=== PATIENT | male | born 1975 | race Caucasian/White ===

== ENCOUNTER 2020-02-21 15:37 | Emergency (ER) | payer OTHER, SELFPAY ==
[2020-02-21 15:38] VITALS: BP 138/88; PULSE 112; RESP 18; TEMP 36.6; O2SAT 98; BMI 34.3
--- NOTE | 2020-02-21 16:04 | ED.VIS.BACK ---
History of Present Illness Chief Complaint: Back Informant: Patient Onset: Days - 02-26 Context: Sudden Onset - while trying to lift something heavy at work Injury: Lifting Timing: Continuous Quality: Aching Location: Lumbar - right, Right Leg Current Severity: Moderate Maximum Severity: Severe Worsened by: improves with: Movement, Bending Relieved by: Remaining Still Associated Symptoms: - - Pain radiates into the right lower extremity distal just distal to the right knee. No numbness or tingling. No bowel or bladder dysfunction. Able to walk but with pain. No fevers or abdominal pain. Narrative: Patient states he was lifting something heavy at work does not want to make this a Workmen's Compensation claim. Pain has been mostly in the right lumbosacral area, occasionally radiating down into his right lower extremity but not to the foot. No weakness in the leg. No saddle anesthesia or other numbness. Past Medical History - Allergies and Home Meds Allergies/Adverse Reactions: Allergies No Known Allergies Allergy (Verified 02/21/20 15:37) Doctors: none Lives: Alone Drugs: None Review of Systems General: Denies: Chills, Fever, Sweats Gastrointestinal: Denies: Abdominal pain, Nausea, Vomiting, Diarrhea, Melena, Hematochezia Genitourinary: Denies: Dysuria, Hematuria, Frequency Musculoskeletal: Reports: Back pain, Extremity Pain. Denies: Swelling Skin: Denies: Rash, Wounds Neurological: Denies: Headache, Weakness, Numbness Physical Exam Vital Signs/Narrative: Vital Signs Temp Pulse Resp BP Pulse Ox 02/21/20 15:38 97.9 F 112 H 18 138/88 H 98 Inital Vital Signs reviewed: Yes General: Well nourished, Well developed, - - Well-appearing, NAD. Painful movement about the low back. Abdomen: Soft, Nontender, Nondistended, Normal bowel sounds. Negative for: Pulsatile mass Back: Normal Inspection, Paraspinal Tenderness - Lumbosacral on the right only, Negative SLR - Right - Including negative cross straight leg raise., Negative SLR - Left. Negative for: Spinal tenderness Extremeties: Nontender, No edema Skin: Normal color, No rash, No Trauma Neuro: Alert, Oriented, Normal Strength, Normal Sensation, Normal DTR, Normal Gait, Normal Reflexes Psychological: Normal affect, Normal Mood Diagnostic/Tx/Re-eval Clinical Impression(s) from Imaging Studies Lumbar Spine X-Ray 02/21/20 16:50 IMPRESSION: No acute osseous injury is evident. If there is further clinical concern for a radiographically occult spinal fracture, consider CT correlation if possible. Electronically Signed: Lacho Gallagher MD at 17:05 EDT Tel , Service support , - Medical Decision Making Patient was amenable to x-rays, they are negative. He was given injections of Toradol and Norflex and had significant relief. He is prescribed some Flexeril to use as needed in addition to NSAIDs, which he has been trying at home, advised to follow-up, he was referred to the next doctor on the unassigned list Dr. Baxter. ED Disposition - Plan for ED Patient: Disposition: Home or Assisted Living Diagnosis: Acute lumbosacral myofascial strain Instructions: ED LUMBAR SPRAIN/STRAIN Prescriptions: cycloBENZAPRine HCl [Flexeril] 10 mg PO TID PRN PRN #15 tab PRN Reason: Muscle Spasm Transmission Status: Pending to [id number] Referrals: Charles Baxter MD [STAFF PHYSICIAN] - 10-14 Days if not better
[2020-02-21] MEDS: Orphenadrine 60 MG/2 ML Ampul IM (16:35)
[2020-02-21] MEDS: Ketorolac 60 MG/2 ML Vial IM (16:35)
--- NOTE | 2020-02-21 16:50 | RAD_ITS ---
STUDY: X-RAY - LUMBAR SPINE REASON FOR EXAM: Male, 44 years old. low back pain after fall TECHNIQUE: 3 view(s) of the lumbar spine were obtained. COMPARISON: None FINDINGS: Normal lumbar lordosis. There is no substantial scoliosis. There is a normal alignment of the vertebrae. Diffuse spondylosis. Multilevel facet disease. The soft tissue structures are unremarkable. RAD/Lumbar Spine 2 or 3 Views IMPRESSION: No acute osseous injury is evident. If there is further clinical concern for a radiographically occult spinal fracture, consider CT correlation if possible. Electronically Signed: Lacho Gallagher MD at 17:05 EDT Tel , Service support ,
[2020-02-21 18:00] VITALS: PULSE 87; RESP 17; O2SAT 98
== END 2020-02-21 18:06 | disposition home or self-care (01) ==
PROVIDERS: Emergency Provider Emergency Medicine
DX: S39.012A Strain of muscle, fascia and tendon of lower back, initial encounter (principal); X50.0XXA Overexertion from strenuous movement or load, initial encounter; Y93.9 Activity, unspecified; Y92.9 Unspecified place or not applicable
CPT/HCPCS: 72100; 96372; 99283

== ENCOUNTER 2020-04-05 17:00 | Outpatient (RCR) | payer OTHER, SELFPAY ==
--- NOTE | 2020-03-06 17:27 | HP.PTEVAL ---
Patient's Visit Information SRINATH MERLOS IV is a 44 year old M referred to Physical Therapy by Dr. Reyna Vergara MD with a diagnosis of R lateral leg pain. Date of Evaluation: 03/06/20 Physical Therapist: JOSE ARMANDO Rodriguez - Visit Plan Frequency: 2x /Week Duration: 6 Weeks Plan: A bed bug was found on the patient as he was walking up to the front office agent after the initial evalation. It was a confirmed bed bug and pt was notified. Pt will need to be treated in Exam Room 4 with no carpeting. Pt will need to be brought back to the room and not wait in the waiting room. 2X/ week for 6 weeks for centralization of symptoms using extension principle and then progression to core stability and postural exercise with HEP and modalities as needed. - Subjective Subjective: Pt reports that he injured himself while at work but this is not WC. He hurt himself when he was picking up a heavy object. It started in his R buttock and wrapper around R lateral thigh and stayed there the last week and half. They gave him a shot in the ER and he did not feel it in his back anymore but in his R lateral leg and pain into his R knee. He reports that it feels like muscle spasm from 3 am on. He tried ice and helped for a little bit and then came right back. He has been trying to move cause it hurts to stand for long periods of time and he can not sit. He can lay fine. He has tingling, throbbing pain, He reports no numbness. He is taking asprin and tylenol for pain. Saw Dr Vergara on Friday and she said to go to PT. He can not walk as long periods of time. Sleeping is spotty. - Pain R leg pain Pain Intensity (Out of 10): 5 back pain Pain Intensity (Out of 10): 3 - Objective Pt in visable pain in waiting room as he was laying down and could not walk back to treatment room with out being guarded. He tried to stand during subjective but had to lay down and feel better in supine. Prone lying X 5 (slight tingle in R lateral leg). Prone to BOWEN X 10.... ( slight increase in pain when up on elbows). When stopped he had slightly more pain. Did another set of 10 prone to BOWEN..... little tight but no pain. Prone press ups (1/2 ROM).... X 10 (pain went from R only to R leg and to center of back).... 2 X 10 additional press ups.... Prone press ups with extended arms 3 X 10 ( pain in center of back (4/10) and nothing in the R leg. Pt laid prone X 15 minutes with ice on his back. When he stood up and walked to the front office agent he had very painful R leg. He walked back to the back and did 3 X 10 press ups and was able to walk out and schedule. - Goals Goal 1:: I HEP Goal Time Frame: 4-6 Weeks Goal 2:: Centralize R leg pain to BP Goal Time Frame: 4-6 Weeks Goal 3:: Rate LBP to 1/10 with RTW activities Goal Time Frame: 4-6 Weeks Goal 4:: Be able to sleep at night without pain Goal Time Frame: 4-6 Weeks Goal 5:: Be able to sit with 1 hour with good posture without pain Goal Time Frame: 4-6 Weeks - Rehabilitation Potential Rehabilitation Potential: Good - Anticipated Interventions Patient/Client Instruction: Educate patient on: Condition, Plan of Care For the Purpose of:: To decrease pain, To decrease swelling/inflammation, To increase ROM, To improve nutrient delivery to tissue, To improve muscle performance and motor function, To improve ability to perform ADL's, To increase tolerance to activity/condition/position, To improve performance and independence with ADL's, To improve ability of physical actions for home/community/work/leisure, To improve gait and locomotor functions, To improve health of tissue, To increase flexibility/ROM Therapeutic Exercise to Include: Strength training, Postural training, Flexibilty training, Gait and locomotor training, Active ROM, Dynamic Lumbar Stabilization, Bob Exercises For the Purpose of:: To decrease pain, To decrease swelling/inflammation, To increase ROM, To improve nutrient delivery to tissue, To improve muscle performance and motor function, To improve ability to perform ADL's, To increase tolerance to activity/condition/position, To improve performance and independence with ADL's, To decrease level of supervision to perform tasks, To improve ability of physical actions for home/community/work/leisure, To improve gait and locomotor functions, To improve health of tissue, To decrease soft tissue restriction, To increase flexibility/ROM Manual Therapy Techniques to Include: Mobilization, Soft tissue mobilization For the Purpose of:: To decrease pain, To increase ROM, To improve nutrient delivery to tissue, To improve muscle performance and motor function, To improve ability to perform ADL's, To increase tolerance to activity/condition/position, To decrease soft tissue restriction, To increase flexibility/ROM IF ES: Yes Cryotherapy (ice pack, ice massage): Yes Thermo therapy (hot pack): Yes Ultrasound (thermal/non thermal): Yes For the Purpose of:: To decrease pain, To decrease swelling/inflammation, To increase ROM, To improve nutrient delivery to tissue, To improve muscle performance and motor function, To improve ability to perform ADL's Thank you for the opportunity to evaluate your patient. For Medicare and Medicare HMO plans, please review the plan of care and approve it. It will need to be FAXED BACK to us at [phone] for Medicare purposes. For Medicare only, by signing this I certify the plan of care. Please let me know if there are questions or concerns regarding this plan of care. Physician Signature: Date:
--- NOTE | 2020-04-05 17:57 | HP.PTREVAL ---
Dr. Reyna Vergara MD, It has been my pleasure to treat SRINATH MERLOS IV over the last 9 visits for R lateral leg pain. Please see the progress note below for an update on the physical therapy plan of care! Subjective: Pt reports that he is back to work and he is working through it. Pt reports that his pain is day by day....Pt has a Dr appointment May 01. He is doing HEP...press ups, bugs,. Prone leg lifts still hurts. Pt is 85% better and it took him 45 min to get in the car when he first came and now he is able to drive. Pt reports that he notices that he is getting better,,,, its just taking forever. Pt reports that steps still bother him and he has to take the stairs one at a time and he does it so it will be less painful. He notices that his R leg will give out from time to time. It'll happen 2-3 X/ day. The weakness in his R leg will come and go.... it helps when he can sit down. Objective/Function: Pt pain is always decreased with press ups but pain in R leg still persisits. Pt is not completely sleeping through the night. Prone hip extension still bothers his R side... Plan Plan: Hold Chart.....until pt sees May 01. 2X/ week for 6 weeks for centralization of symptoms using extension principle and then progression to core stability and postural exercise with HEP and modalities as needed. Goals Goal 1:: I HEP Goal Time Frame: 4-6 Weeks Goal Progress: Goal Met Goal 2:: Centralize R leg pain to BP Goal Time Frame: 4-6 Weeks Goal Progress: Progressing Goal 3:: Rate LBP to 1/10 with RTW activities Goal Time Frame: 4-6 Weeks Goal Progress: Progressing Goal 4:: Be able to sleep at night without pain Goal Time Frame: 4-6 Weeks Goal Progress: Progressing Goal 5:: Be able to sit with 1 hour with good posture without pain Goal Time Frame: 4-6 Weeks Goal Progress: Progressing Anticipated Interventions Patient/Client Instruction: Educate patient on: Condition, Plan of Care For the Purpose of:: To decrease pain, To decrease swelling/inflammation, To increase ROM, To improve nutrient delivery to tissue, To improve muscle performance and motor function, To improve ability to perform ADL's, To increase tolerance to activity/condition/position, To improve performance and independence with ADL's, To improve ability of physical actions for home/community/work/leisure, To improve gait and locomotor functions, To improve health of tissue, To increase flexibility/ROM Therapeutic Exercise to Include: Strength training, Postural training, Flexibilty training, Gait and locomotor training, Active ROM, Dynamic Lumbar Stabilization, Bob Exercises For the Purpose of:: To decrease pain, To decrease swelling/inflammation, To increase ROM, To improve nutrient delivery to tissue, To improve muscle performance and motor function, To improve ability to perform ADL's, To increase tolerance to activity/condition/position, To improve performance and independence with ADL's, To decrease level of supervision to perform tasks, To improve ability of physical actions for home/community/work/leisure, To improve gait and locomotor functions, To improve health of tissue, To decrease soft tissue restriction, To increase flexibility/ROM Manual Therapy Techniques to Include: Mobilization, Soft tissue mobilization For the Purpose of:: To decrease pain, To increase ROM, To improve nutrient delivery to tissue, To improve muscle performance and motor function, To improve ability to perform ADL's, To increase tolerance to activity/condition/position, To decrease soft tissue restriction, To increase flexibility/ROM IF ES: Yes Cryotherapy (ice pack, ice massage): Yes Thermo therapy (hot pack): Yes Ultrasound (thermal/non thermal): Yes For the Purpose of:: To decrease pain, To decrease swelling/inflammation, To increase ROM, To improve nutrient delivery to tissue, To improve muscle performance and motor function, To improve ability to perform ADL's Please do not hesitate to contact me at [phone] by phone or if you have questions or concerns regarding this new plan of care! Sincerely, Beth Quijano, MPT
--- NOTE | 2020-08-11 14:54 | HP.PT.NRP ---
SRINATH MERLOS IV was seen in my office for initial evaluation on 03/06/20. The following Plan of Care was established for this patient: Initial Frequency: 2x /Week Initial Duration: 6 Weeks Patient/Client Instruction: Educate patient on: Condition, Plan of Care For the Purpose of:: To decrease pain, To decrease swelling/inflammation, To increase ROM, To improve nutrient delivery to tissue, To improve muscle performance and motor function, To improve ability to perform ADL's, To increase tolerance to activity/condition/position, To improve performance and independence with ADL's, To improve ability of physical actions for home/community/work/leisure, To improve gait and locomotor functions, To improve health of tissue, To increase flexibility/ROM Therapeutic Exercise to Include: Strength training, Postural training, Flexibilty training, Gait and locomotor training, Active ROM, Dynamic Lumbar Stabilization, Bob Exercises For the Purpose of:: To decrease pain, To decrease swelling/inflammation, To increase ROM, To improve nutrient delivery to tissue, To improve muscle performance and motor function, To improve ability to perform ADL's, To increase tolerance to activity/condition/position, To improve performance and independence with ADL's, To decrease level of supervision to perform tasks, To improve ability of physical actions for home/community/work/leisure, To improve gait and locomotor functions, To improve health of tissue, To decrease soft tissue restriction, To increase flexibility/ROM Manual Therapy Techniques to Include: Mobilization, Soft tissue mobilization For the Purpose of:: To decrease pain, To increase ROM, To improve nutrient delivery to tissue, To improve muscle performance and motor function, To improve ability to perform ADL's, To increase tolerance to activity/condition/position, To decrease soft tissue restriction, To increase flexibility/ROM IF ES: Yes Cryotherapy (ice pack, ice massage): Yes Thermo therapy (hot pack): Yes Ultrasound (thermal/non thermal): Yes For the Purpose of:: To decrease pain, To decrease swelling/inflammation, To increase ROM, To improve nutrient delivery to tissue, To improve muscle performance and motor function, To improve ability to perform ADL's This patient was last seen in our office 04/05/20. Pertinent comments regarding their Physical therapy will appear below: [facility]. We were holding his chart and he did not reschedule. At this point I will be discontinuing this patient from physical therapy. I would be happy to see this patient again in the future if found appropriate by the physician. Thank you! Beth Quijano, MPT
== END 2020-04-05 19:00 | disposition home or self-care (01) ==
LOC: PT 17:00
PROVIDERS: Referring Provider Family Medicine; Visit Provider Family Medicine
DX: M79.604 Pain in right leg (principal)
CPT/HCPCS: 97014; 97110; 97162; 97530; G0283

== ENCOUNTER 2023-05-02 07:16 | Emergency (ER) | payer BC, SELFPAY ==
[2023-05-02 07:17] VITALS: BP 167/100; PULSE 94; RESP 18; TEMP 36.6; O2SAT 99; BMI 31.8
--- NOTE | 2023-05-02 07:38 | EX.ED.DYSGE1 ---
HPI History of Present Illness Chief Complaint: Wound Informant: patient Narrative Narrative: Patient has had 2 abscesses growing over the past 9 days, the one that started initially is on his neck behind the right mastoid process, he has had an abscess there before, it has been draining and he and his have been treating it with MRSA pad changes, apparently involving a gauze pad with some type of antiseptic on it under a Band-Aid. 2 or 3 days later he started developing 1 on his left paranasal face, making the left upper lip a little prominent but without any other lip swelling/issue, tongue swelling, trouble breathing or swallowing, or any other intraoral problem. He states he had a fever subjectively at 1 point. He otherwise feels fine. He saw his doctor this morning for this and he was sent here, according to the patient because he is on lisinopril and may have angioedema related to it. [facility] Medical History (Updated 05/02/23 @ 11:[address] Sd Herrera MD) HTN (hypertension) Home Medications cyclobenzaprine 10 mg tablet 10 mg PO TID PRN PRN Muscle Spasm #15 tabs 02/21/20 [Rx Last Taken Unknown] sulfamethoxazole 800 mg-trimethoprim 160 mg tablet 1 tab PO BID #20 TABLETS 05/02/23 [Rx Last Taken Unknown] Allergy/AdvReac Type Severity Reaction Status Date / Time No Known Allergies Allergy Verified 05/02/23 07:17 Social History Smoking Status: Never smoker ROS [facility] ED Constitutional Constitutional ED: Reports fever(s) and subjective; Denies chills or sweats Eyes Eyes: Denies change in vision or diplopia ENT ENT ED: Reports as per HPI; Denies throat swelling or tongue swelling Cardiovascular Cardiovascular: Denies chest pain Respiratory/Chest Respiratory/Chest: Denies dyspnea Musculoskeletal Musculoskeletal: Reports neck pain; Denies back pain Integumentary Reports abscess Neurologic Neurologic: Denies headache(s), paresthesias or weakness EXAM Physical Exam Const Vital Signs: 05/02/23 07:17 05/02/23 11:28 Temperature 98 F Temperature Source Temporal Pulse Rate 94 72 Respiratory Rate 18 16 Blood Pressure 167/100 H 129/88 H Blood Pressure Mean 122 101 Pulse Ox 99 97 Oxygen Delivery Method Room Air Room Air Positive well nourished and well developed General Appearance ED: well developed and NAD HEENT Reports moist mucous membranes HEENT Narrative: Normal intraoral exam. Normal tongue. No trismus. Facial abscess about 3 cm in diameter partially within the mustache left paranasal face, does not involve the nose, does not involve the lip but the left side of the upper lip does prominent due to the nearby abscess, there is NO angioedema. Also, very small subcentimeter tender swollen abscess left forehead/worship without fluctuance or discharge or pointing. Eyes PERRL and EOMs intact bilaterally Neck supple Neck Narrative: Tender 3 cm abscess draining some purulent material right posterior lateral neck. Resp normal respiratory effort Effort and Inspection: able to speak in complete sentences Neuro oriented x3, CN's II-XII intact bilaterally, no sensory deficits noted and gait normal Motor Exam: strength 5/5 throughout Psych mental status grossly normal Skin Skin Narrative: 2 abscesses, 1 on the right posterior lateral neck, 1 on the face see above. No other rashes. MDM MDM MDM Narrative Medical decision making narrative: The right neck and the left paranasal facial abscesses needed to be I&D to, this was done see the procedure note, but the one in his left lateral forehead does not appear to be ready. Started on Bactrim to cover MRSA as this is highly suspicious, and prescribed it and discussed reasons to return to the ER. Procedures Other Procedures Procedure(s): Incision and drainage facial abscess, simple: Left paranasal abscess prepped with chlorhexidine, anesthetized with 2 cc plain 1% lidocaine, incised centrally along Foster's lines with a #11 blade, expressed relatively small amount of purulent material, attempted to deloculated, but limited ability due to patient with drawling and pain. Cleansed and dressed with bacitracin. Incision and drainage of right neck abscess, simple: prepped with chlorhexidine, anesthetized with 3 cc plain 1% lidocaine, incised centrally with a #11 blade, expressed relatively small amount of purulent material, attempted to deloculated. Cleansed and dressed with bacitracin. Discharge Plan Triage Chief Complaint: Wound ED Provider: Sd Herrera Dx/Rx/DC Orders Clinical Impression: Abscess of skin of neck, Abscess of face Instructions: ED Abscess Incision And Drainage Prescriptions: New sulfamethoxazole-trimethoprim [sulfamethoxazole-trimethoprim] 800-160 mg tablet 1 tab PO BID Qty: 20 0RF No Action cyclobenzaprine 10 MG tablet 10 mg PO TID PRN PRN (Reason: Muscle Spasm) Qty: 15 0RF Primary Care Provider: Naveed Love NP Referrals: Doctor,Your [Non-Staff] - 1 Week if not improving (Return to the ER if any of them worsen while on antibiotics for at least 48 hours) Activity Restrictions/Additional Instructions: Change dressing multiple times in the first 24-48 hours, you cannot change it too often but I would recommend at least every 4 hours or so, and you may stop changing dressings when there is no more drainage. Disposition Disposition: Home, Self Care
[2023-05-02] MEDS: Smz/Tmp Ds Tablet 1 TABLET PO (07:41)
[2023-05-02] MEDS: Lidocaine 1% (20 ml mdv) 20 ML Vial INFILT (07:41)
[2023-05-02 11:28] VITALS: BP 129/88; PULSE 72; RESP 16; O2SAT 97
[2023-05-02 11:53] VITALS: BP 141/67; PULSE 82; RESP 16; O2SAT 98
== END 2023-05-02 11:53 | disposition home or self-care (01) ==
PROVIDERS: Emergency Provider Emergency Medicine; PCP Nurse Practitioner Family; Visit Provider Emergency Medicine
DX: L02.01 Cutaneous abscess of face (principal); L02.11 Cutaneous abscess of neck; I10 Essential (primary) hypertension; Z79.899 Other long term (current) drug therapy
CPT/HCPCS: 10061; 10060; 99283